=== PATIENT | male | born 1970 | race Caucasian/White ===

== ENCOUNTER 2017-10-25 18:20 | Emergency (ER) | payer OTHER ==
[2017-10-25 18:39] VITALS: PULSE 77; TEMP 99.8
[2017-10-25] MEDS ORDERED: LORAZEPAM 0.5 MG TAB PO ONE (18:50)
[2017-10-25] MEDS ORDERED: LORAZEPAM 0.5 MG TAB ONE (18:53)
[2017-10-25 19:00] LABS: BASOPHILS % (AUTO) 1 % (0-3); EOSINOPHILS % (AUTO) 8 % (0-9); HEMATOCRIT 43 % (39-53); MEAN CORPUSCULAR HGB CONC 35.2 gm/dl (32.0-36.0); MEAN CORPUSCULAR VOLUME 86 fL (80-100); MONOCYTES % (AUTO) 6.7 % (0-12); NEUTROPHILS % (AUTO) 59.4 % (37-80)
[2017-10-25 19:17] LABS: ALBUMIN 3.9 gm/dl (3.4-5.0); ALKALINE PHOSPHATASE 91 IU/L (46-116); ALT 28 IU/L (14-63); AST 21 IU/L (15-37); BILIRUBIN,TOTAL 0.6 mg/dl (0.2-1.0); BLOOD UREA NITROGEN 19 mg/dl (7-18); CREATININE 1.18 mg/dl (0.80-1.30); GLOM FILT RATE 67 mL/min (>60); GLUCOSE 96 mg/dl (74-106); POTASSIUM 4.7 mMol/L (3.5-5.1); SODIUM 141 mMol/L (136-145)
[2017-10-25 22:34] VITALS: BP 131/87; RESP 16; O2SAT 96
== END 2017-10-25 19:39 | disposition home or self-care (01) | DRG 880 ==
LOC: ED 18:20
DX: F41.1 Generalized anxiety disorder (principal); R07.89 Other chest pain
CPT/HCPCS: 71045; 80053; 84484; 85025; 93005; 99284; A9270-GY